=== PATIENT | male | born 1980 | race Caucasian/White ===

== ENCOUNTER 2023-06-18 00:05 | Inpatient (IN) | payer MEDICAID ==
[~2023-06-18] VITALS: Ht 180.3 cm; Wt 73.6 kg
[~2023-06-18 00:05] MED LIST: ASPI-999 PO
[2023-06-18] MEDS ORDERED: ONDANSETRON 4 MG ORAL DISSOLVE TABLET PO PRN (22:00)
[2023-06-18] MEDS ORDERED: MELATONIN 3 MG TABLET PO PRN (22:00)
[2023-06-18] MEDS ORDERED: NS IV 500 ML 500 ML IV PRN (22:00)
[2023-06-18] MEDS ORDERED: diphenhydrAMINE 25 MG TABLET PO PRN (22:00)
[2023-06-18] MEDS ORDERED: NITROGLYCERIN 0.4 MG SL TABLETS BTL 25'S SL PRN (22:00)
[2023-06-18] MEDS ORDERED: CALCIUM CARBONATE 500 MG CHEW TABLET PO PRN (22:00)
[2023-06-18] MEDS ORDERED: NS IV 1000 ML 1,000 ML IV SCH (22:00)
[2023-06-18] MEDS ORDERED: ONDANSETRON INJECTION 4 MG/2 ML (SDV) IV PRN (22:00)
[2023-06-18] MEDS ORDERED: BISACODYL 10 MG SUPPOSITORY PR PRN (22:00)
[2023-06-18] MEDS ORDERED: diphenhydrAMINE INJ 50 MG/ML VIAL IVP PRN (22:00)
[2023-06-18] MEDS ORDERED: LACTULOSE SYRUP 10GM/15ML 30ML UDC PO PRN (22:00)
[2023-06-18] MEDS ORDERED: MILK OF MAGNESIA 400 MG/5 ML 30 ML UDC PO PRN (22:00)
[2023-06-18] MEDS ORDERED: HYDROmorphone INJECTION 2 MG/ML VIAL IVP PRN (22:00)
[2023-06-18] MEDS ORDERED: PATIENT MAY USE OWN MEDS, ALL PO SCH (22:00)
[2023-06-18] MEDS ORDERED: oxyCODONE IMMEDIATE RELEASE 5 MG TABLET PO PRN (22:00)
[2023-06-18] MEDS ORDERED: ACETAMINOPHEN 325 MG TABLET PO PRN (22:00)
[2023-06-18] MEDS ORDERED: ANTACID SUSPENSION 30 ML UDC PO PRN (22:00)
--- OUTSIDE RECORDS SUMMARY | 2023-06-19 00:10 | XMS REPORT | Clinical Summary ---
Author Author [facility] Organization [facility] Address Unknown Phone Unavailable Care Team Providers Care Career Technical Counselor Name Role Phone Naila Ruano Sujit STOVALL-PAPER STACKER Unavailable [phone] Self, Referral PCP Unavailable Source Comments Some departments are not documenting in the electronic medical record. If you do not see the information that you expected, contact Release of Information in the Health Information Management department at [phone] for further assistance in locating additional records.[facility] Allergies Active Allergy Reactions Criticality Noted Date Comments Meperidine RASH 03/12/2012 Medications Medication Sig Dispensed Refills Start Date End Date Status NO HOME MEDICATIONS 0 Activ e Active Problems No known active problems Social History Tobacco Use Types Packs/Day Years Used Date Smoking Tobacco: Every Day Cigarettes Smokeless Tobacco: Never Alcohol Use Standard Drinks/Week Comments Yes 0 (1 standard drink = 0.6 oz pur e alcohol) "everyday" per mother Sex and Gender Information Value Date Recorded Sex Assigned at Not on file Gender Identity Not on file Sexual Orientation Not on file Obstetrics History Last Filed Vital Signs Vital Sign Reading Time Taken Comments Blood Pressure 166/103 03/12/2012 10:34 AM CDT Pulse 104 03/12/2012 10:34 AM CDT Temperature 37.1 C (98.7 F) 03/12/2012 10:34 AM C DT Respiratory Rate - - Oxygen Saturation 99% 03/12/2012 10:34 AM CDT Inhaled Oxygen Concentration - - Weight - - Height - - Body Mass Index - - Plan of Treatment Health Maintenance Due Date Last Done Comments COVID-19 VACCINE (#1) 02/07/1979 HIV SCREENING 1993 DTAP/TDAP VACCINES (1 - Tdap) 1996 HEPATITIS C SCREENING 1996 PHYSICAL (COMPREHENSIVE) EXAM 1996 DEPRESSION SCREENING 08/24/2022 INFLUENZA VACCINE (#1) 2023 PNEUMOCOCCAL VACCINE 0-64 YRS Aged Out No longer eligible based on patient's age to complete this topic Care Teams Career Technical Counselor Relationship Specialty Start Date End Date Self, Referral PCP - General 03/12/12 Naila Ruano APRN-ILIANA [address] [place] [address] 03/12/12
[2023-06-19] MEDS ORDERED: NS IV 1000 ML 1,000 ML ONE ×2 (00:37→07:58)
[2023-06-19 00:39] VITALS: BP 128/91
[2023-06-19] MEDS ORDERED: RT-Ipratropium/Albuterol NEB 3 ML VIAL INH PRN (00:45)
--- NOTE | 2023-06-19 05:00 | Progress Note ---
Progress Note Accepted patient from [facility] for NSTEMI with chest pain resolved. ER doctor had updated Dr Edmonds on the case and he was accepted so I placed ICU orders. Just was updated by Dr Beckwith in [facility] ER about an additional CT scan angiogram of the chest finding found after initial read and it appears patient has an abdominal aneurysm 3mm with mural thrombus so suggested additional CT scans to completely evaluate. Patient remains stable at this time but will order CT with contrast of chest and abdomen and pelvis to fully evaluate. BP remains stable. TRENT BARTLETT DO Jun 19, 2023 05:00
[2023-06-19 05:10] LABS: BASOPHILS # (AUTO) 0.1 10^3/uL (0.0-0.1); BASOPHILS % (AUTO) 1 % (0-10); EOSINOPHILS # (AUTO) 0.3 10^3/uL (0.0-0.3); EOSINOPHILS % (AUTO) 4 % (0-10); HEMATOCRIT 44 % (40-54); HEMOGLOBIN 15.1 g/dL (13.3-17.7); LYMPHOCYTES # (AUTO) 2.5 10^3/uL (1.0-4.0); LYMPHOCYTES % (AUTO) 26 % (12-44); MEAN CORPUSCULAR HEMOGLOBIN 29 pg (25-34); MEAN CORPUSCULAR HGB CONC 34 g/dL (32-36); MEAN CORPUSCULAR VOLUME 86 fL (80-99); MEAN PLATELET VOLUME 9.7 fL (9.0-12.2); MONOCYTES # (AUTO) 0.7 10^3/uL (0.0-1.0); MONOCYTES % (AUTO) 7 % (0-12); NEUTROPHILS % (AUTO) 62 % (42-75); PLATELET COUNT 199 10^3/uL (130-400); WHITE BLOOD COUNT 9.7 10^3/uL (4.3-11.0)
[2023-06-19 05:25] LABS: ALBUMIN 3.5 GM/DL (3.2-4.5); BILIRUBIN,TOTAL 0.9 MG/DL (0.1-1.0); CALCIUM 8.4 MG/DL (8.5-10.1); CREATININE SERUM 0.84 MG/DL (0.60-1.30); POTASSIUM 3.8 MMOL/L (3.6-5.0); TOTAL PROTEIN 6.1 GM/DL (6.4-8.2)
[2023-06-19] MEDS ORDERED: POTASSIUM CL 10MEQ/50ML IVPB 50 ML IV SCH (06:00)
[2023-06-19] MEDS ORDERED: MAGNESIUM 1 GM/100 ML IVPB 100 ML IV SCH (06:00)
[2023-06-19] MEDS ORDERED: POTASSIUM CHLORIDE 20 MEQ TABLET PO SCH (06:00)
[2023-06-19] MEDS: POTASSIUM CL 10MEQ/50ML IVPB 50 ML IV SCH (06:06)
[2023-06-19] MEDS ORDERED: NS 100 ML (IVPB) BAG IV ONE (06:30)
[2023-06-19] MEDS ORDERED: HOLD METFORMIN - RECEIVED CONTRAST 20 ML VIAL IV SCH (06:30)
[2023-06-19] MEDS ORDERED: IOHEXOL 350 MG/ML 100 ML (OMNIPAQUE 350) VIAL IV ONE (06:30)
[2023-06-19] MEDS ORDERED: 1/2 NS IV SOLUTION 1000 ML 1,000 ML IV PRN (06:45)
[2023-06-19] MEDS ORDERED: LORazepam 1 MG TABLET PO PRN (06:45)
[2023-06-19] MEDS ORDERED: ONDANSETRON 4 MG ORAL DISSOLVE TABLET SL PRN (06:45)
[2023-06-19] MEDS ORDERED: SENNA W/DOCUSATE TABLET PO PRN (06:45)
[2023-06-19] MEDS ORDERED: ANTACID SUSPENSION 30 ML UDC PO PRN (06:45)
[2023-06-19] MEDS ORDERED: D5 1/2 NS 1,000 ML IV 1,000 ML IV PRN (06:45)
[2023-06-19] MEDS ORDERED: ONDANSETRON INJECTION 4 MG/2 ML (SDV) IV PRN (06:45)
[2023-06-19] MEDS ORDERED: HEParin (CATH LAB) 2,000 ML IV ONE (07:58)
[2023-06-19] MEDS ORDERED: LIDOCAINE 1% INJ 20 ML VIAL ONE (07:58)
[2023-06-19] MEDS ORDERED: MIDAZOLAM INJ 5 MG/5 ML VIAL ONE (08:00)
[2023-06-19] MEDS ORDERED: fentaNYL INJECTION 100 MCG/2 ML VIAL ONE (08:00)
[2023-06-19] MEDS ORDERED: NITRO DRIP 25000 MCG/D5W 250 ML IV ONE (08:00)
[2023-06-19] MEDS ORDERED: HEParin 1000 UNIT/ML (10ML VIAL) FOR BOLUS ONE (08:00)
[2023-06-19] MEDS ORDERED: VERAPAMIL 5 MG/2 ML (CALAN) VIAL IV ONE (08:19)
--- NOTE | 2023-06-19 08:29 | Cardiac Procedure Note-CS/ASA ---
Pre-Procedure Note Pre-Op Procedure Note Date of Available H&P: Jun 19, 2023 Date H&P Reviewed: Jun 19, 2023 Time H&P Reviewed: 08: History & Physical: H&P Reviewed, Patient Examed, No changes noted Pre-Operative Diagnosis: NSTMI Moderate Sedation PreProcedure Time 08: ASA Score 3 Airway Lungs Heart ASA score ASA 1: a normal healthy patient ASA 2: a patient with a mild systemic disease (mid diabetes, controlled hypertension, obesity ASA 3: a patient with a severe systemic disease that limits activity (angina, COPD, prior Myocardial infarction) ASA 4: a patient with an incapacitating disease that is a constant threat to life (CHF, renal failure) ASA 5: a moribund patient not expected to survive 24 hrs. (ruptured aneurysm) ASA 6: a declared brain- patient whose organs are being harvested. For emergent operations, add the letter E after the classification Mallampati Classification Grade 3 Sedation Plan Analgesia, Amnesia, Plan communicated to team members, Discussed options with patient/fam, Discussed risks with patient/fam The patient is an appropriate candidate to undergo the planned procedure, sedation, and anesthesia. The patient immediately re-assessed prior to indication. KANDIS JONES MD Jun 19, 2023 08:29
--- NOTE | 2023-06-19 08:29 | Consultation-Cardiology ---
HPI-Cardiology Cardiology Consultation Date of Consultation 06/19/23 Date of Admission Time Seen by Provider: 08:26 Indication: Chest pain HPI 42-year-old gentleman with history of multiple stents to the right coronary artery, multiple myocardial infarctions started at age 33. Started to have chest pain waxing and waning for the past 2 weeks. Became more significant last night. He was seen 2 weeks ago at the [facility] emergency room and work-up was negative returned last night to [facility] emergency room and noted to have elevation in troponin level. Responded to nitroglycerin, no acute EKG changes On my evaluation he was having minimal chest pain, has a nitro patch on. No shortness of breath or palpitation. Not following with any night court magistrate Home Medications & Allergies Allergies: Coded Allergies: meperidine (Verified Allergy, Unknown, 05/18/23) morphine (Verified Allergy, Unknown, 05/18/23) sulfamethoxazole (Verified Allergy, Unknown, 05/18/23) trimethoprim (Verified Allergy, Unknown, 05/18/23) Home Medication List Reviewed: Yes TVG-[id number]-Fqvvov Hx Patient Social History Marital Status: single Employed/Student: unemployed Smoking Status: Current Everyday Smoker Alcohol Use?: No Past Medical History Discussed below Family Medical History Significant Family History: No Pertinent Family Hx Review of Systems-General Review of Systems Constitutional: no symptoms reported, see HPI EENTM: see HPI, no symptoms reported Respiratory: no symptoms reported, see HPI Cardiovascular: see HPI, chest pain; No edema, No Hx of Intervention, No palpitations, No syncope, No vascular heart diseas, No other Gastrointestinal: no symptoms reported, see HPI Genitourinary: no symptoms reported, see HPI Musculoskeletal: no symptoms reported, see HPI Skin: no symptoms reported, see HPI Psychiatric/Neurological: No Symptoms Reported, See HPI Reviewed Test Results Reviewed Test Results Lab Laboratory Tests Test 06/19/23 04:38 Range/Units White Blood Count 9.7 4.3-11.0 10^3/uL Red Blood Count 5.15 4.30-5.52 10^6/uL Hemoglobin 15.1 13.3-17.7 g/dL Hematocrit 44 40-54 % Mean Corpuscular Volume 86 80-99 fL Mean Corpuscular Hemoglobin 29 25-34 pg Mean Corpuscular Hemoglobin Concent 34 32-36 g/dL Red Cell Distribution Width 14.6 H 10.0-14.5 % Platelet Count 199 130-400 10^3/uL Mean Platelet Volume 9.7 9.0-12.2 fL Immature Granulocyte % (Auto) 1 % Neutrophils (%) (Auto) 62 42-75 % Lymphocytes (%) (Auto) 26 12-44 % Monocytes (%) (Auto) 7 0-12 % Eosinophils (%) (Auto) 4 0-10 % Basophils (%) (Auto) 1 0-10 % Neutrophils # (Auto) 6.0 1.8-7.8 10^3/uL Lymphocytes # (Auto) 2.5 1.0-4.0 10^3/uL Monocytes # (Auto) 0.7 0.0-1.0 10^3/uL Eosinophils # (Auto) 0.3 0.0-0.3 10^3/uL Basophils # (Auto) 0.1 0.0-0.1 10^3/uL Immature Granulocyte # (Auto) 0.1 0.0-0.1 10^3/uL Sodium Level 138 135-145 MMOL/L Potassium Level 3.8 3.6-5.0 MMOL/L Chloride Level 106 98-107 MMOL/L Carbon Dioxide Level 20 L 21-32 MMOL/L Anion Gap 12 5-14 MMOL/L Blood Urea Nitrogen 11 7-18 MG/DL Creatinine 0.84 0.60-1.30 MG/DL Estimat Glomerular Filtration Rate 110 BUN/Creatinine Ratio 13 Glucose Level 94 70-105 MG/DL Calcium Level 8.4 L 8.5-10.1 MG/DL Corrected Calcium 8.8 8.5-10.1 MG/DL Phosphorus Level 4.0 2.3-4.7 MG/DL Magnesium Level 2.0 1.6-2.4 MG/DL Total Bilirubin 0.9 0.1-1.0 MG/DL Aspartate Amino Transf (AST/SGOT) 18 5-34 U/L Alanine Aminotransferase (ALT/SGPT) 27 0-55 U/L Alkaline Phosphatase 121 40-136 U/L Troponin I 0.230 H <0.028 NG/ML Total Protein 6.1 L 6.4-8.2 GM/DL Albumin 3.5 3.2-4.5 GM/DL Triglycerides Level 214 H <150 MG/DL Cholesterol Level 162 < 200 MG/DL LDL Cholesterol Direct 130 H 1-129 MG/DL VLDL Cholesterol 43 H 5-40 MG/DL HDL Cholesterol 34 L 40-60 MG/DL Physical Exam Physical Exam Vital Signs Vital Signs - First Documented 06/19/23 06/19/23 06/19/23 06/19/23 06/19/23 00:00 00:04 00:22 00:30 00:39 Temp 37.0 Pulse 98 Resp 14 B/P (MAP) 128/91 (103) Pulse Ox 99 O2 Delivery Room Air FiO2 21 Capillary Refill : Height, Weight, BMI Height: '" Weight: lbs. oz. kg; 22.64 BMI Method: General Appearance: No Apparent Distress, WD/WN Eyes: Bilateral Eye Normal Inspection, Bilateral Eye PERRL, Bilateral Eye EOMI HEENT: PERRL/EOMI, TMs Normal, Normal ENT Inspection, Pharynx Normal, Moist Mucous Membranes Neck: Full Range of Motion, Normal Inspection, Non Tender, Supple, Carotid Bruit Respiratory: Chest Non Tender, Normal Breath Sounds, No Accessory Muscle Use, No Respiratory Distress Cardiovascular: Regular Rate, Rhythm, No Edema, No Gallop, No JVD, No Murmur, Normal Peripheral Pulses Gastrointestinal: Normal Bowel Sounds, No Organomegaly, No Pulsatile Mass, Non Tender, Soft Back: Normal Inspection, No CVA Tenderness, No Vertebral Tenderness Extremity: Normal Capillary Refill, Normal Inspection, Normal Range of Motion, Non Tender, No Calf Tenderness, No Pedal Edema Neurologic/Psychiatric: Alert, Oriented x3, No Motor/Sensory Deficits, Normal Mood/Affect Skin: Normal Color, Warm/Dry Lymphatic: No Adenopathy A/P-Cardiology Admission Diagnosis Non-ST elevation myocardial infarction Coronary artery disease Hypertension Hyperlipidemia Assessment/Plan Non-ST elevation myocardial infarction Planning to proceed with cardiac catheterization Coronary artery disease, history of myocardial infarction at age 33, requiring stent, multiple cardiac catheterization with a total of 4 stents to the right coronary artery Hypertension, starting on beta-patsy and ARB Hyperlipidemia, starting on Lipitor 80 mg daily Noncompliance with medication, educated about compliance KANDIS JONES MD Jun 19, 2023 08:29
--- NOTE | 2023-06-19 08:49 | Diagnostic Imaging Report ---
PROCEDURE: CT angiography of the chest with contrast and CT abdomen and pelvis with contrast. TECHNIQUE: Multiple contiguous axial images were obtained through the chest, abdomen and pelvis after administration of intravenous contrast. 3D MIP reconstructed CT angiography acquisitions of the aorta were then performed. Auto Exposure Controls were utilized during the CT exam to meet ALARA standards for radiation dose reduction. INDICATION: Abdominal aneurysm. CT angiogram chest: The thoracic aorta is normal in caliber. No dissection is identified. Central pulmonary arteries are patent. There is no pericardial or pleural fluid identified. No pulmonary infiltrates, nodules or masses are identified. CT angiogram abdomen and pelvis: The abdominal aorta is normal caliber. There is no aneurysm. No dissection is identified. There are atherosclerotic changes within the abdominal aorta. Celiac and SMA are widely patent. The BRADY is widely patent. Renal arteries are patent. Common and external iliac arteries and bilateral common femoral arteries are widely patent. The liver and gallbladder are unremarkable. Pancreas and spleen are unremarkable. No adrenal mass is identified. The precontrast images demonstrate some high density within the renal collecting systems in the proximal right ureter which could represent residual contrast from prior procedure. Clinical correlation is recommended. 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 Evaluation for calculi is compromised. There is no definite hydronephrosis. Bowel loops are normal caliber. There is no obstruction. There is no ascites. The bladder and prostate are unremarkable. IMPRESSION: 1. No evidence of thoracic or abdominal aortic aneurysm or dissection. No acute feature in the chest, abdomen or pelvis is identified. Dictated by: Dictated on workstation # [id number]
--- NOTE | 2023-06-19 08:51 | Diagnostic Imaging Report ---
CHEST 1 VIEW, AP/PA ONLY INDICATION: Dyspnea. COMPARISON: Chest radiograph 05/18/2023. FINDINGS: Lungs: Normal lung volume. No focal consolidation. Stable pulmonary vasculature. Pleura: No pleural effusion or pneumothorax. Heart and Mediastinum: Cardiomediastinal silhouette and great vessels of the thorax are stable. Osseous Structures and Soft Tissues: No acute osseous abnormality. Normal soft tissues. IMPRESSION: No acute cardiopulmonary process. Dictated by: Dictated on workstation # [id number]
--- NOTE | 2023-06-19 08:55 | Cardiac Cath Report ---
Cardiac Cath Report Physician (s)/Development Mgr (s) Physician KANDIS JONES MD Pre-Procedure Diagnosis Pre-Procedure Diagnosis: NSTMI Post-Procedure Note Procedure Start Date: Jun 19, 2023 Name of Procedure: Left heart catheterization IFR to the right coronary artery Findings/Procedure Note PROCEDURE NOTE: 42-year-old gentleman with history of coronary artery disease, admitted through [facility] emergency room with elevated troponin and active chest pain, non- ST elevation myocardial infarction, cardiac catheterization was advised. After explaining the procedure to the patient, all pros and cons were explained, all questions were answered. The patient signed the consent and then he was placed in the cardiac catheterization laboratory. Groin was prepped in SL fashion local anesthesia was used. Sheath placed in the right radial artery, Elbert catheter was advanced to the left ventricular cavity, left ventriculogram was done, pullback LV to aorta was done, engaged the right and left coronary system. Patient has a borderline lesion in the mid right coronary artery AL-1 guide was used, patient received 3000 units of heparin IFR wire was advanced and parked distally. iFR was 0.95 through the right coronary artery. Lesion was nonobstructive disease At the end of the procedure the sheath was removed. Vascular band was used FINDINGS: Hemodynamics LV 100/13, end-diastolic pressure of 13 Aorta 113/85 mean of 97 ANATOMY: Left Main is free of obstructive disease Left Anterior Descending has mild ectasia with no obstructive disease Left Circumflex has mild ectasia with no obstructive disease Right Coronary Artery is dominant artery with multiple stents in the proximal and mid and distal right coronary artery, 40 to 50% lesion in the mid right coronary artery, IFR was 0.95. Nonobstructive disease LV Gram was done showing normal left ventricular size, ejection fraction 60% CONCLUSION: Multiple patent stent in the proximal mid and distal right coronary artery that is a dominant artery with 40 to 50% stenosis in the mid right coronary artery IFR 0.95. Nonobstructive lesion Ectasia was noted in the LAD slightly tortuous artery with slow flow due to small vessel disease nonobstructive disease Normal left ventricular size and systolic function ejection fraction 60% DISCUSSION AND RECOMMENDATION: Patient was started on aspirin, Plavix, Lipitor 80 mg daily and Toprol-XL 25 mg daily Okay for discharge from cardiology standpoint Anesthesia Type: Conscious Sedation Estimated blood loss (mL): 15 ml Contrast Amount: 22 ml Total Radiation Dose: 304 mGy Post-Procedure Diagnosis Post-operative diagnosis: Non-ST elevation myocardial infarction Coronary artery disease Hypertension Hyperlipidemia KANDIS JONES MD Jun 19, 2023 08:55
[2023-06-19] MEDS ORDERED: CLOP75TA28 PO (08:56)
[2023-06-19] MEDS ORDERED: ATOR80TA76 PO (08:56)
[2023-06-19] MEDS ORDERED: MTP25TSR PO (08:56)
--- NOTE | 2023-06-19 08:57 | Discharge Inst-Post CATH ---
Discharge Inst-CATH/EP Problems Reviewed?: Yes Post Cardiac Cath/EP D/C Inst Follow Up/Plan Appointment with Dr Edmonds in 2-4 weeks <b>CARDIAC CATH/EP PROCEDURE DISCHARGE INSTRUCTIONS</b> ACTIVITY * Go Home directly and rest. * Limit activity of the leg (or wrist if it was used) for 7 days including aerobics, swimming, jogging, bicycling, etc. * Restrict stair-climbing for 7 days if possible, if not, climb up with your non-cath leg, then bring together on the same step. * Avoid lifting, pushing, pulling or excessive movement of the affected extremity for 7 days. * Customary sexual activity may be resumed after 2 days-use caution not to use a position that strains or causes pain to the affected extremity. * No driving for 24 hours. * NO SMOKING. * Avoid straining for bowel movements for 7 days. * Gentle walking on level ground is allowed. * Returning to work will depend on the type of procedure and the results. Your doctor will discuss this with you. CALL YOUR DOCTOR FOR ANY OF THE FOLLOWING: *If bleeding from the puncture site occurs- Apply gentle pressure to site with clean cloth and call your doctor or EMS. * If a knot or lump forms under the skin, increases in size, or causes pain. * If bruising appears to be worsening or moving further down your leg instead of disappearing. * Temperature above 101 F. CARE OF YOUR GROIN INCISION; * Bruising or purple discoloration of the skin near the puncture site is common. * You may shower only, no bathtub bathing for 5 days. Be careful to avoid slipping as your leg may feel stiff. * If a closure device was used on your femoral artery, please see the attached guide regarding care of the device and your leg. * Leave dressing on FOR 24 hours. CARE OF YOUR WRIST INCISION; * Bruising or purple discoloration of the skin near the puncture site is common. * You may shower. * DO NOT submerge wrist. * Leave dressing on FOR 24 hours. KANDIS EDMONDS MD Jun 19, 2023 08:57
[2023-06-19] MEDS ORDERED: DOCUSATE SODIUM 100 MG CAPSULE PO SCH (09:00)
[2023-06-19] MEDS ORDERED: CLOPIDOGREL 75 MG TABLET PO SCH ×2 (09:00)
[2023-06-19] MEDS ORDERED: NS IV 1000 ML 1,000 ML IV SCH (09:00)
[2023-06-19] MEDS ORDERED: ASPIRIN enteric coated 81MG TABLET PO SCH ×2 (09:00)
[2023-06-19] MEDS ORDERED: SENNOSIDES 8.6 MG TABLET PO SCH (09:00)
[2023-06-19] MEDS ORDERED: ENOXAPARIN 80 MG/0.8 ML SYRINGE SC SCH (09:00)
--- NOTE | 2023-06-19 09:09 | Short Stay Summary ---
AUDRA AMAYA 06/19/2309: History of Present Illness History of Present Illness Reason for visit/HPI This is a 42 year old male with a history of hypertension, previous MA at age 33, and multiple stents to his right coronary artery who presents to the ICU with elevation of troponin levels. Patient says he was fixing his car yesterday when he suddenly started having chest pain. Patient went to the ER and was noted to have an elevation in his troponin level. Patient did not have any EKG findings. Patient this morning is having on and off chest pain. He says too much movement makes his chest pain worse. He is currently unemployed and lives out of his car. 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 Patient denies any nausea, vomiting, fever, or chills currently. Date of Admission Jun 18, 2023 at 23:59 Date of Discharge Time Seen by Provider: 09:07 Attending Physician [facility] Admitting Physician Admitting Physician: Tiara Bartlett DO Attending Physician: Tiara Bartlett DO Consult Allergies and Home Medications Allergies Coded Allergies: meperidine (Verified Allergy, Unknown, 05/18/23) morphine (Verified Allergy, Unknown, 05/18/23) sulfamethoxazole (Verified Allergy, Unknown, 05/18/23) trimethoprim (Verified Allergy, Unknown, 05/18/23) Patient Home Medication List Aspirin (Aspirin) 81 Mg Tab.chew, 81 MG PO, (Reported) Entered as Reported by: LILLIAN STEVENSON on 05/18/231939 Atorvastatin Calcium (Atorvastatin Calcium) 80 Mg Tablet, 80 MG PO HS Prescribed by: KANDIS JONES on 06/19/23855 Clopidogrel Bisulfate (Clopidogrel) 75 Mg Tablet, 75 MG PO DAILY Prescribed by: KANDIS JONES on 06/19/23 0856 Metoprolol Succinate (Metoprolol Succinate) 25 Mg Tab.er.24h, 25 MG PO DAILY Prescribed by: KANDIS JONES on 06/19/23 08 Past Qgxuwzb-Fqboqn-Xpidlz Hx Patient Social History Marrital Status: single Employed/Student: unemployed Smoking Status: Current Everyday Smoker Alcohol Use?: No Pt feels they are or have been: No Tobacco type used: Cigarettes Respiratory Pulmonary Embolism Cardiovascular Heart Attack Family Medical History Significant Family History: No Pertinent Family Hx Review of Systems Constitutional: No chills, No dizziness EENTM: No ear pain, No blurred vision Respiratory: No cough, No hemoptysis Cardiovascular: chest pain Gastrointestinal: No abdominal pain, No jaundice Genitourinary: No decreased output, No dysuria Musculoskeletal: No back pain, No joint pain Skin: No change in color, No change in hair/nails Psychiatric/Neurological: Denies Anxiety, Denies Paresthesia Physical Exam Vital Signs Vital Signs - First Documented 06/19/23 06/19/23 06/19/23 06/19/23 06/19/23 00:00 00:04 00:22 00:30 00:39 Temp 37.0 Pulse 98 Resp 14 B/P (MAP) 128/91 (103) Pulse Ox 99 O2 Delivery Room Air FiO2 21 Capillary Refill : Height, Weight, BMI Height: '" Weight: lbs. oz. kg; 22.64 BMI Method: General Appearance: No Apparent Distress, WD/WN Eyes: Bilateral Eye Normal Inspection HEENT: TMs Normal, Normal ENT Inspection Neck: Full Range of Motion, Normal Inspection Respiratory: Chest Non Tender, Lungs Clear Cardiovascular: Regular Rate, Rhythm, No Edema Gastrointestinal: Normal Bowel Sounds Back: Normal Inspection Extremity: Normal Inspection, Normal Range of Motion Neurologic/Psychiatric: Alert, Oriented x3, No Motor/Sensory Deficits Short Stay Diagnosis Discharge Diagnosis-Short Stay Final Discharge Diagnosis: NSTEMI Hypertension Coronary artery disease Hyperlipidemia Poor compliance Conclusion Labs Laboratory Tests 06/19/23 04:38: White Blood Count 9.7, Red Blood Count 5.15, Hemoglobin 15.1, Hematocrit 44, Me an Corpuscular Volume 86, Mean Corpuscular Hemoglobin 29, Mean Corpuscular Hemoglobin Concent 34, Red Cell Distribution Width 14.6H, Platelet Count 199, Mean Platelet Volume 9.7, Immature Granulocyte % (Auto) 1, Neutrophils (%) (Auto) 62, Lymphocytes (%) (Auto) 26, Monocytes (%) (Auto) 7, Eosinophils (%) (Auto) 4, Basophils (%) (Auto) 1, Neutrophils # (Auto) 6.0, Lymphocytes # (Auto) 2.5, Monocytes # (Auto) 0.7, Eosinophils # (Auto) 0.3, Basophils # (Auto) 0.1, Immature Granulocyte # (Auto) 0.1, Sodium Level 138, Potassium Level 3.8, Chloride Level 106, Carbon Dioxide Level 20L, Anion Gap 12, Blood Urea Nitrogen 11, Creatinine 0.84, Estimat Glomerular Filtration Rate 110, BUN/Creatinine Ratio 13, Glucose Level 94, Calcium Level 8.4L, Corrected Calcium 8.8, Phosphorus Level 4.0, Magnesium Level 2.0, Total Bilirubin 0.9, Aspartate Amino Transf (AST/SGOT) 18, Alanine Aminotransferase (ALT/SGPT) 27, Alkaline Phosphatase 121, Troponin I 0.230H, Total Protein 6.1L, Albumin 3.5, Triglycerides Level 214H, Cholesterol Level 162, LDL Cholesterol Direct 130H, VLDL Cholesterol 43H, HDL Cholesterol 34L Conclusion/Plan Plan: Cardiac consult Plan for cardiac stent placement today Start B-Alana and ARB Start Lipitor Encourage patient adherence to medication Encourage lifestyle modification Pain control TIARA BARTLETT DO 06/19/232100: History of Present Illness History of Present Illness Reason for visit/HPI Chief complaint: Chest pain with elevated troponin HPI: This is a 42-year-old male who presented from [facility] due to chest pain and elevated troponin consistent with an NSTEMI. Late read on CT scan showed possible aneurysm with thrombus 3 mm in size so I immediately ordered CT chest abdomen pelvis. Those CT scans were normal. Patient underwent cardiac catheterization without intervention since there was no significant stenosis of the coronary vessels. He is homeless. Social work consulted. Discharge planned Date of Admission 06/19/2023 Date of Discharge 06/19/2023 Time Seen by Provider: 11:00 Allergies and Home Medications Allergies Coded Allergies: meperidine (Verified Allergy, Unknown, 05/18/23) morphine (Verified Allergy, Unknown, 05/18/23) sulfamethoxazole (Verified Allergy, Unknown, 05/18/23) trimethoprim (Verified Allergy, Unknown, 05/18/23) Patient Home Medication List Home Medication List Reviewed: Yes Aspirin (Aspirin) 81 Mg Tab.chew, 81 MG PO, (Reported) Entered as Reported by: LILLIAN STEVENSON on 05/18/231939 Atorvastatin Calcium (Atorvastatin Calcium) 80 Mg Tablet, 80 MG PO HS Prescribed by: KANDIS JONES on 06/19/23 08 Clopidogrel Bisulfate (Clopidogrel) 75 Mg Tablet, 75 MG PO DAILY Prescribed by: KANDIS JONES on 06/19/23 0856 Metoprolol Succinate (Metoprolol Succinate) 25 Mg Tab.er.24h, 25 MG PO DAILY Prescribed by: KANDIS JONES on 06/19/23 0856 Past Rtqodym-Piwwrq-Pijxkl Hx Patient Social History Marrital Status: single Employed/Student: unemployed Smoking Status: Current Everyday Smoker Review of Systems Constitutional: see HPI Cardiovascular: chest pain Physical Exam General Appearance: No Apparent Distress, WD/WN Eyes: Bilateral Eye Normal Inspection, Bilateral Eye PERRL, Bilateral Eye EOMI HEENT: PERRL/EOMI, TMs Normal, Normal ENT Inspection, Pharynx Normal Neck: Full Range of Motion, Normal Inspection, Non Tender, Supple, Carotid Bruit Respiratory: Chest Non Tender, Lungs Clear, Normal Breath Sounds, No Accessory Muscle Use, No Respiratory Distress Cardiovascular: Regular Rate, Rhythm, No Edema, No Gallop, No JVD, No Murmur, Normal Peripheral Pulses Gastrointestinal: Normal Bowel Sounds, No Organomegaly, No Pulsatile Mass, Non Tender, Soft Back: Normal Inspection, No CVA Tenderness, No Vertebral Tenderness Extremity: Normal Capillary Refill, Normal Inspection, Normal Range of Motion, Non Tender, No Calf Tenderness, No Pedal Edema Neurologic/Psychiatric: Alert, Oriented x3, No Motor/Sensory Deficits, Normal Mood/Affect Skin: Normal Color, Warm/Dry Lymphatic: No Adenopathy Short Stay Diagnosis Discharge Diagnosis-Short Stay Admission Diagnosis: Chest pain Elevated troponin Normal cardiac cath No aneurysm or thrombus on CT scans Final Discharge Diagnosis: Chest pain Elevated troponin Normal cardiac cath No aneurysm or thrombus on CT scans Conclusion Conclusion/Plan Discharge home Supervisory-Addendum Brief Verification & Attestation Participated in pt care: history, MDM, physical Personally performed: exam, history, MDM, supervision of care Care discussed with: Medical Student Procedures: n/a Results interpretation: Verified all documentation Verification and Attestation of Medical Student E/M Service A medical student performed and documented this service in my presence. I reviewed and verified all information documented by the medical student and made modifications to such information, when appropriate. I personally performed the physical exam and medical decision making. Tiara Bartlett, Jun 19, 2023,21:01 AUDRA AMAYA Jun 19, 2023 09:09 TIARA BARTLETT DO Jun 19, 2023 21:01
== END 2023-06-19 12:00 | disposition home or self-care (01) | DRG 282 ==
LOC: ICU 23:59
PROVIDERS: ADMIT Internal Medicine; ATTEND Internal Medicine
PROC: 4A023N7 Measurement of Cardiac Sampling and Pressure, Left Heart, Percutaneous Approach (ICD-10-PCS; principal; 2023-06-19)
PROC: B2111ZZ Fluoroscopy of Multiple Coronary Arteries using Low Osmolar Contrast (ICD-10-PCS; 2023-06-19)
PROC: B2151ZZ Fluoroscopy of Left Heart using Low Osmolar Contrast (ICD-10-PCS; 2023-06-19)
PROC: 4A033BC Measurement of Arterial Pressure, Coronary, Percutaneous Approach (ICD-10-PCS; 2023-06-19)
DX: I21.4 Non-ST elevation (NSTEMI) myocardial infarction (principal); I25.10 Atherosclerotic heart disease of native coronary artery without angina pectoris; Z95.5 Presence of coronary angioplasty implant and graft; F17.210 Nicotine dependence, cigarettes, uncomplicated; I10 Essential (primary) hypertension; E78.5 Hyperlipidemia, unspecified; I25.2 Old myocardial infarction; Z91.148 Patient's other noncompliance with medication regimen for other reason; Z86.711 Personal history of pulmonary embolism; Z79.82 Long term (current) use of aspirin; Z79.899 Other long term (current) drug therapy
CPT/HCPCS: 36415; 71045; 71275; 74174; 80053; 80061; 83735; 84100; 84484; 85025; 85027; 87081; 93005; 93458